=== PATIENT | male | born 1980 | race Two or more races ===

== ENCOUNTER 2023-07-12 07:00 | Day surgery (SDC) | payer OTHER | END 2023-07-12 12:05 | disposition home or self-care (01) | LOC: AMB-ENDOS 07:00 | PROVIDERS: ATTEND Colon & Rectal Surgery | DX: K63.5 Polyp of colon (principal); K57.30 Diverticulosis of large intestine without perforation or abscess without bleeding; K62.5 Hemorrhage of anus and rectum; R19.4 Change in bowel habit; Z20.822 Contact with and (suspected) exposure to COVID-19; Z88.6 Allergy status to analgesic agent ==

== ENCOUNTER 2024-09-20 03:14 | Inpatient (IN) | payer OTHER ==
[~2024-09-20] VITALS: Ht 162.6 cm; Wt 72.6 kg
--- NOTE | 2024-09-20 03:58 | NUR ---
PACIENTE REFIERE SANGRADO POR LAS HEMOROIDES DESDE FAUSTINO POR LA NOCHE. EL MISMOR REFIERE QUE RUBIO COLRon RECTAL DR. TYLER HOFFMAN LE HIZO UN PROCEDIMIENTO EL PARA LAS HEMOROIDES
--- NOTE | 2024-09-20 04:51 | NUR ---
SE ORIENTA A PTE SOBRE TX MEDICO ORDENADO POR . SE REALIZA INR DE MUESTRAS DE LAB LIZETTE ORDEN MEDICA Y BAJO MEDIDAS ASEPTICAS. VENOPUNCION PATENTE PAITENCE DE EDEMA Y ERITEMA EN H/L.
[2024-09-20 05:21] LABS: INR 1.1; PROTHROMBIN TIME 11.9 SECONDS (9.0-11.5)
[2024-09-20 05:22] LABS: HEMATOCRIT 37.2 % (39.0-48.0); HEMOGLOBIN 12.4 g/dL (13-16.00); MEAN CELL VOLUME 81.6 fL (80.0-100.00); MEAN CORPUSCULAR HEMOGLOBIN 27.3 pg (27.00-32.0); MEAN CORPUSCULAR HGB CONC 33.4 g/dl (32.0-36.0); PLATELET COUNT 292 K/uL (150-450); RED BLOOD COUNT 4.56 M/uL (4.00-6.00); RED CELL DISTRIBUTION WIDTH 13.7 % (11.5-14.5)
[2024-09-20 05:25] LABS: BILIRUBIN TOTAL 1.4 mg/dL (0.3-1.2); CREATININE SERUM 1.08 mg/dL (0.70-1.30); GFR 74.27; GLOBULINA 3.7 G/DL (2.4-3.5); POTASSIUM 3.62 mEq/L (3.5-5.1); TOTAL PROTEIN 7.7 gm/dL (6.4-8.2)
--- NOTE | 2024-09-20 07:00 | NUR ---
SE RECIBE PTE ALERTA ORIENTADO X3 EN JEET CON BARANDAS ELEVADAS POR RUBIO SEGURIDAD.RECIBIENDO 0.9 NSS BAJANDO 150ML/HR.PENDIENTE CONSULTA MEDICA. DX ANAL BLEEDING.
[2024-09-20] MEDS ORDERED: 0.9 % SODIUM CHLORIDE 1,000 ML IV SCH ×2 (07:15→16:45)
[2024-09-20] MEDS ORDERED: 0.9 % SODIUM CHLORIDE 1,000 ML IV STA (07:26)
[2024-09-20] MEDS ORDERED: PANTOPRAZOLE SODIUM 40 MG in 0.9 % SODIUM CHLORIDE 8 ML IV PUSH SCH (16:32)
[2024-09-20 17:20] VITALS: BP 102/71
[2024-09-20 18:23] LABS: ALBUMIN 3.8 gm/dL (3.4-5.0); BILIRUBIN TOTAL 1.73 mg/dL (0.3-1.2); BILIRUBIN,CONJUGATED 0.33 mg/dL (0.0-0.2); BILIRUBIN,UNCONJUGATED 1.4 mg/dL (0.0-0.6); CALCIUM 9.1 mg/dL (8.5-10.1); CREATININE SERUM 0.86 mg/dL (0.70-1.30); GFR 96.6; PHOSPHOROUS 3.2 mg/dL (2.5-4.9); POTASSIUM 3.79 mEq/L (3.5-5.1); TOTAL PROTEIN 7.1 gm/dL (6.4-8.2)
[2024-09-20 22:55] VITALS: O2SAT 99
[2024-09-21] VITALS (8 sets, daily range): BP systolic 93–98; BP diastolic 58–62; O2SAT 94–100
[2024-09-21 07:34] LABS: HEMATOCRIT 30.1 % (39.0-48.0); MEAN CELL VOLUME 81.6 fL (80.0-100.00); MEAN CORPUSCULAR HGB CONC 33.1 g/dl (32.0-36.0); PLATELET COUNT 238 K/uL (150-450); RED BLOOD COUNT 3.69 M/uL (4.00-6.00); RED CELL DISTRIBUTION WIDTH 13.4 % (11.5-14.5)
[2024-09-21 12:02] LABS: PH,URINE 5.5 (5.0-8.0); URINE APPEARANCE Clear; URINE BACTERIA 4.8 uL (0.0-1933); URINE BILIRRUBIN Negative (NEGATIVE); URINE BLOOD Negative; URINE CAST 2.06 uL (0.0-1.40); URINE COLOR Yellow; URINE EPITHELIAL CELLS 25.1 uL (0.0-38.8); URINE GLUCOSE Negative (NEGATIVE); URINE LEUKOCYTE Negative; URINE NITRATE Negative; URINE PROTEIN Negative (NEGATIVE); URINE RBC 4.2 uL (0.0-20.8); URINE WBC 42.1 uL (0.0-23.2)
[2024-09-21 12:32] LABS: URINE KETONE 40 (NEGATIVE)
[2024-09-21 12:34] LABS: URINE MUCUS HEAVY
[2024-09-21] MEDS ORDERED: HYDROCORTISONE ACETATE 25 MG/SUPP.RECT SUPP.RECT RECTAL SCH (13:00)
[2024-09-21] MEDS ORDERED: HYDROCORTISONE ACETATE 25 MG/SUPP.RECT SUPP.RECT RECTAL PRN (13:11)
[2024-09-21] MEDS ORDERED: IRON FUM,PS/FOLIC ACID/VITC/B3 1 CAP CAPSULE PO SCH (13:12)
[2024-09-21] MEDS ORDERED: PYRIDOXINE HCL 100 MG TABLET PO SCH (13:12)
[2024-09-21] MEDS ORDERED: Cyanocobalamin/Mecobalamin 1 TAB.SL SL SCH (13:12)
[2024-09-21] MEDS ORDERED: POLYETHYLENE GLYCOL 3350 17 GM BLIST.PACK PO PRN (13:15)
[2024-09-21] MEDS ORDERED: POLYETHYLENE GLYCOL 3350 17 GM BLIST.PACK PO SCH (17:00)
[2024-09-22] VITALS (9 sets, daily range): BP systolic 90–115; BP diastolic 55–70; O2SAT 91–100
[2024-09-22 06:32] LABS: HEMATOCRIT 25.2 % (39.0-48.0); HEMOGLOBIN 8.5 g/dL (13-16.00); MEAN CELL VOLUME 81.8 fL (80.0-100.00); MEAN CORPUSCULAR HEMOGLOBIN 27.5 pg (27.00-32.0); MEAN CORPUSCULAR HGB CONC 33.7 g/dl (32.0-36.0); PLATELET COUNT 205 K/uL (150-450); RED BLOOD COUNT 3.08 M/uL (4.00-6.00); RED CELL DISTRIBUTION WIDTH 13.3 % (11.5-14.5)
[2024-09-22] MEDS ORDERED: PSYLLIUM HUSK 1 PKT PACKET PO SCH (09:00)
[2024-09-22] MEDS ORDERED: PANTOPRAZOLE SODIUM 40 MG/VIAL VIAL IV SCH (21:00)
[2024-09-23] VITALS (9 sets, daily range): BP systolic 102–113; BP diastolic 60–78; O2SAT 96–100
[2024-09-23 00:30] LABS: HEMATOCRIT 29.2 % (39.0-48.0); HEMOGLOBIN 9.6 g/dL (13-16.00); MEAN CELL VOLUME 82.5 fL (80.0-100.00); MEAN CORPUSCULAR HEMOGLOBIN 27.2 pg (27.00-32.0); MEAN CORPUSCULAR HGB CONC 32.9 g/dl (32.0-36.0); PLATELET COUNT 235 K/uL (150-450); RED BLOOD COUNT 3.54 M/uL (4.00-6.00)
[2024-09-24] VITALS (10 sets, daily range): BP systolic 111–117; BP diastolic 69–81; O2SAT 94–100
[2024-09-24 06:42] LABS: HEMATOCRIT 26.2 % (39.0-48.0); MEAN CELL VOLUME 82.4 fL (80.0-100.00); MEAN CORPUSCULAR HGB CONC 34.1 g/dl (32.0-36.0); PLATELET COUNT 197 K/uL (150-450); RED BLOOD COUNT 3.18 M/uL (4.00-6.00); RED CELL DISTRIBUTION WIDTH 13.8 % (11.5-14.5)
[2024-09-24 06:50] LABS: MEAN CORPUSCULAR HEMOGLOBIN 27.9 pg (27.00-32.0)
[2024-09-24 06:51] LABS: HEMOGLOBIN 8.9 g/dL (13-16.00)
[2024-09-24 07:00] LABS: ALBUMIN 3.4 gm/dL (3.4-5.0); BILIRUBIN TOTAL 0.79 mg/dL (0.3-1.2); CALCIUM 8.9 mg/dL (8.5-10.1); CREATININE SERUM 0.82 mg/dL (0.70-1.30); GFR 102.06; GLOBULINA 2.6 G/DL (2.4-3.5); POTASSIUM 4.25 mEq/L (3.5-5.1)
[2024-09-24] MEDS ORDERED: FUROsemide 20 MG/2 ML VIAL IV SCH (10:45)
[2024-09-24] MEDS ORDERED: BISACODYL 5 MG TABLET.EC PO NR (11:00)
[2024-09-24] MEDS ORDERED: POLYETHYLENE GLYCOL 3350 238 GM POWDER PO NR (13:00)
[2024-09-24 15:26] LABS: INR 1.07; PARTIAL THROMBOPLASTIN TIME 26.1 SECONDS (22.0-34.0); PROTHROMBIN TIME 11.6 SECONDS (9.0-11.5)
[2024-09-24 15:37] LABS: HEMATOCRIT 29.6 % (39.0-48.0); HEMOGLOBIN 9.7 g/dL (13-16.00); MEAN CELL VOLUME 83.1 fL (80.0-100.00); MEAN CORPUSCULAR HEMOGLOBIN 27.2 pg (27.00-32.0); MEAN CORPUSCULAR HGB CONC 32.7 g/dl (32.0-36.0); PLATELET COUNT 258 K/uL (150-450); RED BLOOD COUNT 3.56 M/uL (4.00-6.00); RED CELL DISTRIBUTION WIDTH 14.1 % (11.5-14.5)
[2024-09-24 15:54] LABS: FERRITIN 19.3 NG/ML (26-388)
[2024-09-24 15:56] LABS: COL EPI 110 SECONDS (82-175)
[2024-09-24 16:07] LABS: ALBUMIN 3.6 gm/dL (3.4-5.0); CREATININE SERUM 1.03 mg/dL (0.70-1.30); GFR 78.45; MAGNESIUM 2.2 mg/dL (1.8-2.4); PHOSPHOROUS 3.4 mg/dL (2.5-4.9); POTASSIUM 3.72 mEq/L (3.5-5.1)
[2024-09-25] VITALS (8 sets, daily range): BP systolic 115–125; BP diastolic 71–78; O2SAT 96–100
[2024-09-25 07:03] LABS: HEMATOCRIT 30.4 % (39.0-48.0); MEAN CELL VOLUME 83.5 fL (80.0-100.00); MEAN CORPUSCULAR HEMOGLOBIN 27.5 pg (27.00-32.0); MEAN CORPUSCULAR HGB CONC 32.9 g/dl (32.0-36.0); PLATELET COUNT 194 K/uL (150-450); RED BLOOD COUNT 3.64 M/uL (4.00-6.00); RED CELL DISTRIBUTION WIDTH 14.2 % (11.5-14.5)
[2024-09-25 07:07] LABS: ALBUMIN 3.3 gm/dL (3.4-5.0); CALCIUM 8.5 mg/dL (8.5-10.1); CREATININE SERUM 0.77 mg/dL (0.70-1.30); GFR 109.75; MAGNESIUM 2.2 mg/dL (1.8-2.4); PHOSPHOROUS 3.8 mg/dL (2.5-4.9); POTASSIUM 4.06 mEq/L (3.5-5.1)
[2024-09-25 11:06] LABS: FOLIC ACID > 20.00 ng/ml (4.78-20)
[2024-09-26] VITALS (9 sets, daily range): BP systolic 99–115; BP diastolic 63–80; O2SAT 97–106
[2024-09-26 04:54] LABS: MEAN CELL VOLUME 82.5 fL (80.0-100.00); MEAN CORPUSCULAR HEMOGLOBIN 28.4 pg (27.00-32.0); MEAN CORPUSCULAR HGB CONC 34.4 g/dl (32.0-36.0); PLATELET COUNT 212 K/uL (150-450); RED BLOOD COUNT 3.51 M/uL (4.00-6.00); RED CELL DISTRIBUTION WIDTH 14.5 % (11.5-14.5)
[2024-09-26] MEDS ORDERED: SOD FERRIC GLUC COMPLX/SUCROSE 62.5 MG/5 ML AMPUL IV SCH (10:54)
[2024-09-26] MEDS ORDERED: MULTIVIT INFUSN,ADULT 4,VIT K 10 ML VIAL IV SCH (10:55)
[2024-09-26] MEDS ORDERED: BISACODYL 5 MG TABLET.EC PO SCH (11:00)
[2024-09-26] MEDS ORDERED: POLYETHYLENE GLYCOL 3350 238 GM POWDER PO SCH (13:00)
[2024-09-26 13:23] LABS: ABG PH 7.414 (7.35-7.45); ABG PO2 94.4 mmHg (80-100); ABG pCO2 38.4 mmHg (35-45); BASE EXCESS -0.3 mmol/l; SaO2 97.4 %; Tco2 25.2 mmol/l
[2024-09-26 13:39] LABS: allen test SATISFACTORY; o2 21 %; puncture site RADIAL RIGHT
[2024-09-26 18:07] LABS: hgb a 97.5 % (96.4-98.8); hgb a2 2.5 % (1.8-3.2); hgb f 0 % (0.0-2.0); hgb s 0 % (0.0)
[2024-09-27 00:37] VITALS: BP 115/74
[2024-09-27 00:46] VITALS: O2SAT 100
[2024-09-27 03:36] VITALS: O2SAT 100
[2024-09-27 09:16] VITALS: BP 119/69; O2SAT 100
[2024-09-27] MEDS ORDERED: ONDANSETRON HCL 2 MG/ML VIAL IV ONE (09:30)
[2024-09-27] MEDS ORDERED: fentaNYL CITRATE 50 MCG/ML AMPUL IV PUSH ONE (09:30)
[2024-09-27] MEDS ORDERED: MIDAZOLAM HCL 2 MG/2 ML VIAL IV ONE (09:30)
[2024-09-27] MEDS ORDERED: DIPHENHYDRAMINE HCL 50 MG/ML VIAL 1ML IV ONE (09:30)
[2024-09-30 17:02] LABS: g6pd quant 277 (127-427); rbc 3.53 x10E6/uL (4.14-5.80)
== END 2024-09-27 13:20 | disposition home or self-care (01) | DRG 379 ==
LOC: ER 03:16 → MEDI 17:39
PROVIDERS: Colon & Rectal Surgery; General Practice; Internal Medicine; Internal Medicine Hematology & Oncology; ADMIT Internal Medicine; ATTEND Internal Medicine
PROC: 4A12X4Z Monitoring of Cardiac Electrical Activity, External Approach (ICD-10-PCS; 2024-09-20)
PROC: BW21ZZZ Computerized Tomography (CT Scan) of Abdomen and Pelvis (ICD-10-PCS; 2024-09-20)
PROC: 30233N1 Transfusion of Nonautologous Red Blood Cells into Peripheral Vein, Percutaneous Approach (ICD-10-PCS; 2024-09-22)
PROC: 0DBP8ZX Excision of Rectum, Via Natural or Artificial Opening Endoscopic, Diagnostic (ICD-10-PCS; principal; 2024-09-27)
DX: K62.5 Hemorrhage of anus and rectum (principal); D64.9 Anemia, unspecified; E80.4 Gilbert syndrome; K64.8 Other hemorrhoids

== ENCOUNTER → 2024-12-13 10:45 | Outpatient (CLI) | payer OTHER ==
[2024-12-13 12:26] LABS: HEMATOCRIT 39.8 % (39.0-48.0); HEMOGLOBIN 13.2 g/dL (13-16.00); MEAN CELL VOLUME 79.6 fL (80.0-100.00); MEAN CORPUSCULAR HEMOGLOBIN 26.5 pg (27.00-32.0); MEAN CORPUSCULAR HGB CONC 33.3 g/dl (32.0-36.0); PLATELET COUNT 266 K/uL (150-450); RED CELL DISTRIBUTION WIDTH 14.2 % (11.5-14.5)
[2024-12-13 13:26] LABS: ALBUMIN 4.5 gm/dL (3.4-5.0); BILIRUBIN TOTAL 1.3 mg/dL (0.3-1.2); CALCIUM 9.7 mg/dL (8.5-10.1); CREATININE SERUM 0.9 mg/dL (0.70-1.30); GFR 91.67; GLOBULINA 3.6 G/DL (2.4-3.5); POTASSIUM 4.68 mEq/L (3.5-5.1); T4 FREE 1.15 NG/ML (0.76-1.46); TOTAL PROTEIN 8.1 gm/dL (6.4-8.2); TSH 1.01 uIU/mL (0.358-3.74)
[2024-12-13 13:37] LABS: FOLIC ACID > 20.00 ng/ml (4.78-20); VITAMIN D3 25 HYDROXY 25.64 ng/ml (30-120)
[2024-12-16 07:57] LABS: MANUAL PLATELET COUNT 380
[2024-12-16 07:58] LABS: PLATELET ESTIMATE NORMAL (NORMAL)
[2024-12-17 09:10] LABS: ANTI THYROID PEROXIDASE 13 IU/mL (0-34); HAPTOGLOBIN 77 mg/dL (23-355)
== END | disposition home or self-care (01) ==
LOC: LAB 10:45
PROVIDERS: ATTEND Internal Medicine Hematology & Oncology
DX: D58.2 Other hemoglobinopathies (principal); D50.8 Other iron deficiency anemias; K64.2 Third degree hemorrhoids; E80.4 Gilbert syndrome; D68.32 Hemorrhagic disorder due to extrinsic circulating anticoagulants; R79.9 Abnormal finding of blood chemistry, unspecified; K76.89 Other specified diseases of liver; I10 Essential (primary) hypertension; R74.02 Elevation of levels of lactic acid dehydrogenase [LDH]; Z13.29 Encounter for screening for other suspected endocrine disorder; E55.9 Vitamin D deficiency, unspecified; D51.0 Vitamin B12 deficiency anemia due to intrinsic factor deficiency; E03.8 Other specified hypothyroidism; E06.3 Autoimmune thyroiditis

== ENCOUNTER 2024-12-13 12:08 | Outpatient (CLI) | payer OTHER | END 2024-12-13 12:12 | disposition home or self-care (01) | LOC: SONOGRAMA 12:08 | PROVIDERS: ATTEND Internal Medicine Hematology & Oncology | DX: E04.2 Nontoxic multinodular goiter (principal); D58.2 Other hemoglobinopathies; D50.8 Other iron deficiency anemias; K64.2 Third degree hemorrhoids; E80.4 Gilbert syndrome; D68.32 Hemorrhagic disorder due to extrinsic circulating anticoagulants ==

== ENCOUNTER → 2025-06-24 09:15 | Outpatient (CLI) | payer OTHER ==
[2025-06-24 10:03] LABS: BASO % 0.9 % (0.1-1.2); EOS # 0.17 (0.04-0.54); EOS % 3.9 % (0.7-7.0); LYMPH # 1.43 (1.18-3.74); LYMPH % 32.5 % (19.3-53.1); MEAN PLATELET VOLUME 9.80 fl (9.4-12.4); MONO # 0.32 (0.24-0.82); MONO % 7.3 % (4.7-12.5); NEUT # 2.43 (1.56-6.13); NEUT % 55.2 % (34.0-71.1); RED CELL DISTRIBUTION WIDTH 13.0 % (11.6-14.4)
[2025-06-24 10:54] LABS: ALT/SGPT 47.0 U/L (12-78); AST/SGOT 26.0 U/L (15-37); BILIRUBIN TOTAL 0.9 mg/dL (0.3-1.2); BUN CREA RATIO 16.0 (7.0-25.0); CREATININE SERUM 0.83 mg/dL (0.70-1.30); FE 66.0 ug/dl (65-175); GFR 100.19; GLOBULINA 3.5 G/DL (2.4-3.5); GLUCOSE FASTING 96.0 mg/dL (65-100); LDH 155.0 U/L (87-241); OSMOLALITY SERUM 283.0 MOSM/KG (275-295)
[2025-06-24 12:26] LABS: FOLIC ACID > 20.00 ng/ml (4.78-20)
== END | disposition home or self-care (01) ==
LOC: LAB 09:15
PROVIDERS: ATTEND Internal Medicine Hematology & Oncology
DX: D58.2 Other hemoglobinopathies (principal); D50.8 Other iron deficiency anemias; K64.2 Third degree hemorrhoids; E80.4 Gilbert syndrome; D68.32 Hemorrhagic disorder due to extrinsic circulating anticoagulants; R79.9 Abnormal finding of blood chemistry, unspecified; I10 Essential (primary) hypertension; R74.02 Elevation of levels of lactic acid dehydrogenase [LDH]; K76.89 Other specified diseases of liver